=== PATIENT | male | born 1995 | race Caucasian/White ===

== ENCOUNTER 2019-07-27 16:34 | Emergency (ER) | payer OTHER ==
[~2019-07-27] VITALS: Ht 172.7 cm; Wt 82.0 kg
[2019-07-27 18:10] LABS: BASO # 0.1 10^3/uL (0.0-0.2); BASO % 0.7 % (0.0-1.0); EOS # 0.3 10^3/uL (0.0-0.5); HEMOGLOBIN 16.8 g/dl (13.5-17.5); LYMPH # 3.1 10^3/uL (1.5-5.0); LYMPH % 36.6 % (24.0-44.0); MEAN CORPUSCULAR HEMOGLOBIN 30.5 pg (27.0-33.0); MEAN CORPUSCULAR HGB CONC 33.6 g/dl (32.0-36.5); MEAN CORPUSCULAR VOLUME 90.9 fl (80.0-96.0); MONO # 0.8 10^3/uL (0.0-0.8); MONO % 9.4 % (0.0-5.0); NEUTROPHILS # 4.2 10^3/uL (1.5-8.5); NEUTROPHILS % 49.1 % (36.0-66.0); PLATELET COUNT, AUTOMATED 255 10^3/uL (150-450); WHITE BLOOD COUNT 8.5 10^3/uL (4.0-10.0)
--- NOTE | 2019-07-27 19:06 | REPVR ---
PROCEDURE INFORMATION: Exam: US Scrotum Exam date and time: 07/27/2019 6:34 PM Age: 23 years old Clinical indication: Scrotum pain TECHNIQUE: Imaging protocol: Real-time ultrasound of the scrotum and contents with color Doppler and image documentation. COMPARISON: No relevant prior studies available. FINDINGS: Right testicle: Few microcalcifications. No mass. No torsion. Normal vascular flow. Left testicle: Few microcalcifications. No mass. No torsion. Normal vascular flow. Epididymides: Normal. Scrotum: Normal. IMPRESSION: Testicular microlithiasis is present without intratesticular mass or other worrisome findings. In the absence of any other risk factors for testicular cancer (e.g., personal history of testicular cancer, a father or brother with testicular cancer, history of cryptorchidism or maldescent, testicular atrophy, or other risk factors), no further imaging or biochemical follow-up is necessary; all that is recommended is routine monthly testicular self-examination. However, if the patient has risk factors for testicular cancer, referral to a urologist for evaluation and determination of an optimal follow-up strategy is recommended. Electronically signed by: Chalino Heart On 07/27/2019 19:06:07 PM
[2019-07-27 19:12] LABS: CHLAMYDIA DNA AMPLIFICATION NEGATIVE (NEGATIVE); GC DNA AMPLIFICATION NEGATIVE (NEGATIVE)
[2019-07-27 20:01] VITALS: BP 138/90
--- NOTE | 2019-07-28 10:54 | ED PDOC ---
Post-Departure Follow-Up dr baxter and ye lara fp faxed fomral report of scrotal us for fu Bennie Chavira MD Jul 28, 2019 10:54
== END 2019-07-27 20:03 | disposition home or self-care (01) ==
LOC: M ED 16:34
DX: N50.89 Other specified disorders of the male genital organs (principal); R31.9 Hematuria, unspecified

== ENCOUNTER → 2019-11-27 | Outpatient (CLI) | payer OTHER ==
--- NOTE | 2019-11-27 12:43 | REP ---
RENAL ULTRASOUND: Real-time sonographic evaluation of the kidneys performed. Both kidneys are normal in size and echotexture right kidney measuring 11.4 x 5.3 x 4.5 cm and the left kidney 10.8 x 5.2 x 5.5 cm. No renal mass, hydronephrosis or definite renal stone is seen bilaterally. IMPRESSION: Negative renal ultrasound. BLADDER ULTRASOUND: Real-time sonographic evaluation of the urinary bladder is performed. The bladder measures 8.2 x 8.3 x 7.0 cm for a total volume of 311 mL. After voiding, there is no postvoid residual. No bladder mass or calculus is seen. Ureteral jets were seen in the urinary bladder with Doppler color evaluation. IMPRESSION: Negative bladder ultrasound. Electronically Signed by Te Beasley MD 11/27/2019 03:12 P
== END ==
LOC: M LRY 09:00
PROVIDERS: ATTEND Specialist
DX: N50.819 Testicular pain, unspecified (principal)